=== PATIENT | female | born 1990 | race Two or more races ===

== ENCOUNTER 2019-04-03 07:51 | Emergency (ER) | payer SELFPAY ==
[~2019-04-03] VITALS: Ht 165.1 cm; Wt 69.9 kg
[2019-04-03 07:58] VITALS: BP 168/78
[2019-04-03] MEDS ORDERED: diphenhdrAMINE HCL 25 MG CAP PO ONE (09:00)
[2019-04-03] MEDS ORDERED: PROMETHAZINE HCL 25 MG/ML 1ML IM ONE (09:00)
[2019-04-03] MEDS ORDERED: KETOROLAC TROMETH 60MG/2ML VIAL IM ONE (09:00)
== END 2019-04-03 09:43 | disposition home or self-care (01) ==
LOC: ER 07:51
DX: R51 Headache (principal)
CPT/HCPCS: 81025; 96372; 99283; J1885; J2550

== ENCOUNTER 2019-05-22 02:58 | Emergency (ER) | payer SELFPAY ==
[~2019-05-22] VITALS: Ht 165.1 cm; Wt 68.9 kg
[2019-05-22 03:57] LABS: Basophils # (auto) 0.1 uL; Basophils % (auto) 0.5 % (0.0-2.0); Eosinophils # (auto) 0.1 uL; Eosinophils % (auto) 1.3 % (0.0-7.0); Hemoglobin 13.6 g/dL (12.2-16.2); Lymphocytes # (auto) 3.3 uL; Lymphocytes % (auto) 30.4 % (10.0-50.0); Mean Corpuscular Hemoglobin 30.9 pg (28.0-32.0); Mean Corpuscular Hgb Conc. 33.9 g/dL (32.0-36.0); Mean Corpuscular Volume 90.9 fL (80.0-100.0); Monocytes # (auto) 0.9 uL; Neutrophils # (auto) 6.5 uL; Neutrophils % (auto) 59.8 % (37.0-80.0); Platelet Count (auto) 264 10^3/uL (140-450); Red Cell Distribution Width 13.1 % (11.8-14.3); White Blood Cell 10.8 10^3/uL (4.4-10.8)
[2019-05-22 04:10] LABS: Albumin 3.6 g/dL (3.4-5.0); BUN/Creatinine Ratio 27.5; Calcium 9.1 mg/dL (8.5-10.1); Potassium 3.9 mmol/L (3.5-5.1)
[2019-05-22 04:12] LABS: Bilirubin, Total 0.1 mg/dL (0.2-1.0); Total Protein 7.8 g/dL (6.4-8.2)
[2019-05-22 04:16] LABS: Urine Bacteria FEW /hpf (None Seen); Urine Blood 2+ /uL (Negative); Urine Specific Gravity 1.005 (1.001-1.035); Urine WBC 145 /hpf (0 - 5); Urine WBC Clumps PRESENT /hpf (None Seen)
[2019-05-22] MEDS ORDERED: cefTRIAXone 1GM/50ML D5W 50 ML IV ONE (05:00)
[2019-05-22] MEDS ORDERED: SODIUM CHLORIDE 0.9% 1,000 ML IV ONE (05:00)
[2019-05-22] MEDS ORDERED: MORPHINE SULFATE 4 MG/ML SYR/VIAL IV ONE (05:00)
[2019-05-22] MEDS ORDERED: ONDANSETRON HCL 4 MG/2 ML VIAL IV ONE (05:00)
[2019-05-22 08:01] VITALS: BP 116/68
== END 2019-05-22 08:04 | disposition home or self-care (01) ==
LOC: ER 03:02
DX: N39.0 Urinary tract infection, site not specified (principal)
CPT/HCPCS: 36415; 74176; 80053; 81001; 81025; 85025; 96365; 96375; 99284; J0696; J2270; J2405; J7030